=== PATIENT | male | born 1970 | race African-American/Black ===

== ENCOUNTER 2018-01-17 17:53 | Emergency (ER) | payer OTHER ==
[~2018-01-17] VITALS: Ht 175.3 cm; Wt 86.2 kg
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
[2018-01-17] MEDS ORDERED: ORPHENADRINE CITRATE 60 MG/2 ML VIAL. IM ONE (19:45)
[2018-01-17] MEDS ORDERED: MORPHINE SULFATE 10 MG/ML SYRINGE. SQ ONE (19:45)
[2018-01-17] MEDS ORDERED: methylPREDNISolone ACETATE 40 MG/ML VIAL. IM ONE (19:45)
[2018-01-17] MEDS ORDERED: KETOROLAC 60 MG/2 ML VIAL. IM ONE (19:45)
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
[2018-01-17] MEDS ORDERED: HYDR-79 PO (20:41)
[2018-01-17] MEDS ORDERED: CYCL-331 PO (20:41)
[2018-01-17 20:43] VITALS: BP 134/90
[2018-01-17 21:09] LABS: BASO % 1 % (0-3); EOS # 0.1 x10^3/uL (0.0-0.7); EOS % 2 % (0-3); HEMATOCRIT 42.7 % (39.0-53.0); HEMOGLOBIN 14.9 g/dL (13.0-17.5); LYMPH # 0.5 x10^3/uL (1.0-4.8); LYMPH % 13 % (24-48); MEAN CORPUSCULAR HEMOGLOBIN 28 pg (25-35); MEAN CORPUSCULAR HGB CONC 35 g/dL (31-37); MEAN CORPUSCULAR VOLUME 81 fL (79-100); MONO # 0.3 x10^3/uL (0.0-1.1); MONO % 7 % (0-9); NEUT # 3.1 x10^3uL (1.8-7.7); NEUT % 77 % (31-73); PLATELET COUNT 205 x10^3/uL (140-400); RED BLOOD COUNT 5.26 x10^6/uL (4.30-5.70); RED CELL DISTRIBUTION WIDTH 14.6 % (11.5-14.5)
[2018-01-17 21:17] LABS: ALBUMIN 3.5 g/dL (3.4-5.0); CALCIUM 8.5 mg/dL (8.5-10.1); DIRECT BILIRUBIN 0.1 mg/dL (0.0-0.2); GFR 95.7; POTASSIUM 3.7 mmol/L (3.5-5.1); TOTAL BILIRUBIN 0.3 mg/dL (0.2-1.0); TOTAL PROTEIN 8.6 g/dL (6.4-8.2)
== END 2018-01-17 21:09 | disposition home or self-care (01) ==
LOC: ER 17:53
DX: M48.061 Spinal stenosis, lumbar region without neurogenic claudication (principal); M48.04 Spinal stenosis, thoracic region; M47.9 Spondylosis, unspecified; R59.9 Enlarged lymph nodes, unspecified; V49.9XXA Car occupant (driver) (passenger) injured in unspecified traffic accident, initial encounter; Y93.89 Activity, other specified; Y99.8 Other external cause status; Y92.488 Other paved roadways as the place of occurrence of the external cause
CPT/HCPCS: 72128; 72131; 80048; 80076; 85025; 96372; 99285; J1030; J1885; J2270; J2360

== ENCOUNTER 2020-07-14 07:59 | Emergency (ER) | payer BC ==
[~2020-07-14] VITALS: Ht 175.3 cm; Wt 86.3 kg
[~2020-07-14 07:59] MED LIST: CYCL-331 PO; HYDR-1179 PO
[2020-07-14 08:03] VITALS: BP 128/88
[2020-07-14] MEDS ORDERED: INDO50CA15 PO (08:27)
--- NOTE | 2020-07-14 08:27 | PHYS DOC ---
Past History Past Medical History: No Pertinent History Past Surgical History: No Surgical History Alcohol Use: Occasionally Drug Use: None General Adult EDM: Chief Complaint: FOOT INJURY PAIN HPI: HPI: 50-year-old male coming in with right ankle swelling for the past couple of days. Has a history of gout and ran out of his indomethacin. Patient states he has a longtime history and admits to recent alcohol use and is eating steaks. States he has also been walking around more frequently. No systemic complaints. States there is nothing abnormal or different about this current flareup. Review of Systems: Review of Systems: Constitutional: Denies fever or chills Eyes: Denies change in visual acuity HENT: Denies nasal congestion or sore throat Respiratory: Denies cough or shortness of breath Cardiovascular: Denies chest pain or edema GI: Denies abdominal pain, nausea, vomiting, bloody stools or diarrhea : Denies dysuria Musculoskeletal: Denies back pain or right ankle swelling Integument: Denies rash or erythema Neurologic: Denies headache, focal weakness or sensory changes Endocrine: Denies polyuria or polydipsia Lymphatic: Denies swollen glands Psychiatric: Denies depression or anxiety Heart Score: Risk Factors: Risk Factors: DM, Current or recent (<one month) smoker, HTN, HLP, family history of CAD, obesity. Risk Scores: Score 0 - 3: 2.5% MACE over next 6 weeks - Discharge Home Score 4 - 6: 20.3% MACE over next 6 weeks - Admit for Clinical Observation Score 7 - 10: 72.7% MACE over next 6 weeks - Early Invasive Strategies Allergies: Allergies: Allergies Coded Allergies Type Severity Reaction Last Updated Verified No Known Drug Allergies 01/17/18 No Physical Exam: PE: Constitutional: Well developed, well nourished, no acute distress, non-toxic appearance. [] HENT: Normocephalic, atraumatic, bilateral external ears normal, oropharynx moist, no oral exudates, nose normal. [] Eyes: PERRLA, EOMI, conjunctiva normal, no discharge. [] Neck: Normal range of motion, no tenderness, supple, no stridor. [] Cardiovascular:Heart rate regular rhythm, no murmur [] Lungs & Thorax: Bilateral breath sounds clear to auscultation [] Abdomen: Bowel sounds normal, soft, no tenderness, no masses, no pulsatile masses. [] Skin: Warm, dry, no erythema, no rash. [] Back: No tenderness, no CVA tenderness. [] Extremities: No tenderness, no cyanosis, no clubbing, ROM intact, no edema. [] Mild swelling of right ankle Neurologic: Alert and oriented X 3, normal motor function, normal sensory function, no focal deficits noted. [] Psychologic: Affect normal, judgement normal, mood normal. [] Current Patient Data: Vital Signs: Vital Signs Date Time Temp Pulse Resp B/P (MAP) Pulse Ox O2 Delivery O2 Flow Rate FiO2 07/14/20 08:03 98.3 75 16 128/88 (101) 96 Room Air EKG: EKG: [] Radiology/Procedures: Radiology/Procedures: [] Course & Med Decision Making: Course & Med Decision Making Pertinent Labs and Imaging studies reviewed. (See chart for details) [] Dragon Disclaimer: Dragon Disclaimer: This electronic medical record was generated, in whole or in part, using a voice recognition dictation system. Departure Departure: Impression: Primary Impression: Right ankle swelling Disposition: 01 DC HOME SELF CARE/HOMELESS Condition: STABLE Referrals: HIPOLITO MALDONADO MD (PCP) Patient Instructions: Gout, [id number] Scripts Indomethacin (INDOMETHACIN) 50 Mg Capsule 1 CAP PO TID for arthritis for 10 Days, #30 CAP 0 Refills with food Prov: SHANON ROBISON MD 07/14/20 SHANON ROBISON MD Jul 14, 2020 08:27
[2020-07-14] MEDS ORDERED: KETOROLAC 60 MG/2 ML VIAL. IM ONE (08:58)
[2020-07-14] MEDS ORDERED: INDOMETHACIN 25 MG CAPSULE PO ONE (09:00)
== END 2020-07-14 09:09 | disposition home or self-care (01) ==
LOC: ER 07:59
DX: R22.41 Localized swelling, mass and lump, right lower limb (principal); M10.9 Gout, unspecified
CPT/HCPCS: 99283

== ENCOUNTER 2021-05-15 19:17 | Emergency (ER) | payer BC ==
[~2021-05-15 19:17] MED LIST changes: +INDO50CA15 PO
== END 2021-05-15 19:19 | disposition left against medical advice (07) ==
LOC: ER 19:17
DX: Z20.822 Contact with and (suspected) exposure to COVID-19 (principal); Z53.21 Procedure and treatment not carried out due to patient leaving prior to being seen by health care provider

== ENCOUNTER 2022-01-05 15:32 | Emergency (ER) | payer SELFPAY ==
[~2022-01-05] VITALS: Ht 175.3 cm; Wt 86.3 kg
[~2022-01-05 15:32] MED LIST changes: -CYCL-331 PO; +CYCL10TA19 PO
--- NOTE | 2022-01-05 16:07 | PHYS DOC ---
Past History Past Medical History: No Pertinent History Past Surgical History: No Surgical History Alcohol Use: Occasionally Drug Use: None General Adult EDM: Chief Complaint: CHEST PAIN HPI: HPI: 51-year-old male presents with chest pain. He tells me that it is a sharp and constant pain. Its been there for couple of days, but he also said a couple weeks. It radiates into his left arm. Is currently an 8 out of 10. Patient states a history of sarcoidosis with no details. He denies stress test or cardiac cath. No history of heart or lung problems. He denies fever or chills. Review of Systems: Review of Systems: Constitutional: Denies fever or chills Eyes: Denies change in visual acuity HENT: Denies nasal congestion or sore throat Respiratory: Denies cough or shortness of breath Cardiovascular: Chest pain GI: Denies abdominal pain, nausea, vomiting, bloody stools or diarrhea : Denies dysuria Musculoskeletal: Left shoulder pain Integument: Denies rash Neurologic: Denies headache, focal weakness or sensory changes Endocrine: Denies polyuria or polydipsia Lymphatic: Denies swollen glands Psychiatric: Denies depression or anxiety Allergies: Allergies: Allergies Coded Allergies Type Severity Reaction Last Updated Verified No Known Drug Allergies 01/17/18 No Physical Exam: PE: Constitutional: Well developed, well nourished, no acute distress, non-toxic appearance. [] HENT: Normocephalic, atraumatic, bilateral external ears normal, oropharynx moist, no oral exudates, nose normal. [] Eyes: PERRLA, EOMI, conjunctiva normal, no discharge. [] Neck: Normal range of motion, no tenderness, supple, no stridor. [] Cardiovascular: Heart rate 63, regular rhythm, no murmur [] Lungs & Thorax: Bilateral breath sounds clear to auscultation [] Abdomen: Bowel sounds normal, soft, no tenderness, no masses, no pulsatile masses. [] Skin: Warm, dry, no erythema, no rash. [] Back: No tenderness, no CVA tenderness. [] Extremities: No tenderness, no cyanosis, no clubbing, ROM intact, no edema. [] Neurologic: Alert and oriented X 3, normal motor function, normal sensory func tion, no focal deficits noted. [] Psychologic: Affect normal, judgement normal, mood anxious. [] EKG: EKG: Sinus rhythm, rate 63, normal axis, no ST elevation or depression, diffusely inverted T waves. [] Radiology/Procedures: Radiology/Procedures: [] Heart Score: C/O Chest Pain: Yes HEART Score for Chest Pain: HEART Score for Chest Pain Response (Comments) Value History Slighlty/Non-Suspicious 0 ECG Nonspecific Repolarizatio 1 Age >45 - < 65 1 Risk Factors 1 or 2 Risk Factors 1 Troponin < Normal Limit 0 Total 3 Risk Factors: Risk Factors: DM, Current or recent (<one month) smoker, HTN, HLP, family history of CAD, obesity. Risk Scores: Score 0 - 3: 2.5% MACE over next 6 weeks - Discharge Home Score 4 - 6: 20.3% MACE over next 6 weeks - Admit for Clinical Observation Score 7 - 10: 72.7% MACE over next 6 weeks - Early Invasive Strategies Course & Med Decision Making: Course & Med Decision Making Pertinent Labs and Imaging studies reviewed. (See chart for details) EKG is unremarkable. The patient's labs are significant for a low white blood cell count of 2.6. He has a slightly elevated sodium. His troponin is negative. His chest x-ray showed as possible pneumonia. I will treat him with azithromycin and Rocephin. I will discharge him on azithromycin for home. [] Dragon Disclaimer: Dragon Disclaimer: This electronic medical record was generated, in whole or in part, using a voice recognition dictation system. Departure Departure: Impression: Primary Impression: Pneumonia Referrals: HIPOLITO MALDONADO MD (PCP) Patient Instructions: Pneumonia, Adult, [id number] Scripts Azithromycin (AZITHROMYCIN TABLET) 250 Mg Tablet 250 MG PO DAILY for ANTI-BIOTIC for 4 Days, #4 TAB 0 Refills Prov: JOSÉ MANUEL MORA DO 01/05/22 JOSÉ MANUEL MORA DO Jan 05, 2022 16:07
--- NOTE | 2022-01-05 16:08 | RAD ---
AP chest. HISTORY: Chest pain AP view was taken of the chest. Patient's taken a poor inspiration. Heart is normal in size. There is no pleural effusion. There is mild hazy atelectasis or infiltrate in the right lung base. IMPRESSION: 1. Mild basilar atelectasis or infiltrate on the right. Electronically signed by: Kenn Elizondo MD (01/05/2022 4:06 PM) [id number]
[2022-01-05] MEDS ORDERED: ASPIRIN CHEWABLE 81 MG TABLET. PO ONE (16:15)
--- NOTE | 2022-01-05 16:32 | EKG ---
[address] [address] Test Date: 2022-01-05 Test Time: 15:44:39 Pat Name: POOJA RAMOS Department: Room: Gender: M [employer]ice [employer]er: : 1970 Requested By: JOSÉ MANUEL MORA Order Number: [id number] Reading MD: Gil Zimmerman Measurements Intervals [place] Rate: 63 P: 23 NE: 180 QRS: 42 QRSD: 86 T: -87 QT: 414 QTc: 427 Interpretive Statements SINUS RHYTHM T ABNORMALITY IN ANTERIOR LEADS Electronically Signed On 01-11-2022 14:09:24 CDT by Gil Zimmerman
[2022-01-05 16:48] LABS: BASO % 1 % (0-3); EOS # 0.1 x10^3/uL (0.0-0.7); EOS % 3 % (0-3); HEMATOCRIT 44.3 % (39.0-53.0); LYMPH # 0.5 x10^3/uL (1.0-4.8); LYMPH % 18 % (24-48); MEAN CORPUSCULAR HEMOGLOBIN 28 pg (25-35); MEAN CORPUSCULAR HGB CONC 34 g/dL (31-37); MEAN CORPUSCULAR VOLUME 83 fL (79-100); MONO # 0.2 x10^3/uL (0.0-1.1); MONO % 9 % (0-9); NEUT # 1.8 x10^3uL (1.8-7.7); NEUT % 70 % (31-73); PLATELET COUNT 215 x10^3/uL (140-400); RED BLOOD COUNT 5.34 x10^6/uL (4.30-5.70); RED CELL DISTRIBUTION WIDTH 13.8 % (11.5-14.5); WHITE BLOOD COUNT 2.6 x10^3/uL (4.0-11.0)
[2022-01-05 16:49] LABS: CALCIUM 8.1 mg/dL (8.5-10.1); CREATININE 0.9 mg/dL (0.7-1.3); GFR 106.8; POTASSIUM 4.2 mmol/L (3.5-5.1)
[2022-01-05 16:55] LABS: ALBUMIN 3.3 g/dL (3.4-5.0); ALBUMIN/GLOBULIN RATIO 0.8 (1.0-1.7); TOTAL BILIRUBIN 0.2 mg/dL (0.2-1.0); TOTAL PROTEIN 7.7 g/dL (6.4-8.2)
[2022-01-05] MEDS ORDERED: AZIT250T6 PO (17:40)
[2022-01-05 17:48] LABS: BACTERIA,URINE 0 /HPF (0-FEW); CLARITY,URINE CLEAR; COLOR,URINE YELLOW; GLUCOSE,URINE NEG (NEG); NITRITE,URINE NEG (NEG); RBC,URINE 0 /HPF (0-2); UROBILINOGEN,URINE 0.2 mg/dL (0.2 mg/dL); WBC,URINE 0 /HPF (0-4)
[2022-01-05] MEDS ORDERED: HYDR-2759 PO (17:49)
[2022-01-05] MEDS ORDERED: AZITHROMYCIN 250 MG TABLET. PO ONE (18:00)
[2022-01-05] MEDS ORDERED: HYDROcodone/APAP 7.5/325MG 1 TAB TABLET PO ONE (18:00)
[2022-01-05] MEDS ORDERED: IV NORMAL SALINE 50ML 50 ML ONE (18:10)
[2022-01-05] MEDS ORDERED: cefTRIAXone SODIUM 1 GM VIAL ONE (18:11)
[2022-01-05 18:19] VITALS: BP 125/72
== END 2022-01-05 19:02 | disposition home or self-care (01) ==
LOC: ER 15:32
DX: J18.9 Pneumonia, unspecified organism (principal)
CPT/HCPCS: 36415; 71045; 80053; 81001; 84484; 85025; 93005; 96365; 99285; J0696